=== PATIENT | female | born 1995 | race American Indian/Alaskan Native ===

== ENCOUNTER 2021-10-19 09:03 | Emergency (ER) | payer SELFPAY ==
--- NOTE | 2021-10-19 11:36 | Emergency Department Report ---
Minor Respiratory - HPI Chief Complaint: Syncope Stated Complaint: PT HAVING SYNCOPAL EPISODE Time Seen by Provider: 10/19/21 11:26 Other History: 25-year-old -Swiss female presents to the emergency room complaining of body aches hot and cold flashes nausea nasal congestion had a sore throat last night. States that she took to 800 mg ibuprofen and reports that did help. She does report having her Covid vaccination but not her [address]. She has not recently tested for Covid. Patient reports that she was moving around in her room in the dark and she bumped into a wall and injured her lip. ED Review of Systems ROS: Stated complaint: PT HAVING SYNCOPAL EPISODE Other details as noted in HPI Comment: All other systems reviewed and negative ED Past Medical Hx - Past Medical History Previous Medical History?: No - Surgical History Past Surgical History?: No Minor Respiratory Exam - Exam General: Vital signs noted. No distress. Alert and acting appropriately. HEENT: Yes Moist Mucous Membranes, No Pharyngeal Erythema, No Pharyngeal Exudates, No Rhinorrhea, No Conjuctival Injection, No Frontal Tenderness, No Maxillary Tenderness Ear: Neither EAC Pain, Neither EAC Discharge Neck: Yes Supple, No Adenopathy Lungs: Yes Good Air Exchange, No Wheezes, No Ronchi, No Stridor, No Cough, No Labored Respirations, No Retractions, No Use of Accessory Muscles, No Other Abnormal Lung Sounds Heart: Yes Regular, No Murmur Abdomen: Yes Normal Bowel Sounds, No Tenderness, No Peritoneal Signs Skin: No Rash, No Edema Neurologic: Alert and oriented, no deficits. Musculoskeletal: Unremarkable. ED Course Vital Signs 10/19/21 09:06 Temperature 100.4 F H Pulse Rate 108 H Respiratory 16 Rate Blood Pressure 116/35 [Left] O2 Sat by Pulse 100 Oximetry ED Medical Decision Making - Medical Decision Making 25-year-old -Swiss female presents to the emergency room complaining of body aches hot and cold flashes nausea nasal congestion had a sore throat last night. States that she took to 800 mg ibuprofen and reports that did help. She does report having her Covid vaccination but not her booster. She has not recently tested for Covid. Patient reports that she was moving around in her room in the dark and she bumped into a wall and injured her lip. Discussed with patient she can take Tylenol or ibuprofen for her body aches and fever discussed with patient to not take more than 800 mg of ibuprofen every 6-8 hours. Discussed with patient she needs to increase her fluid intake. She can take [id number] cold and flu medication. Be sure to drink as much fluids as possible. As the cold medication can cause dry throat mouth. Recommend to go get Covid tested. Critical care attestation.: If time is entered above; I have spent that time in minutes in the direct care of this critically ill patient, excluding procedure time. ED Disposition Clinical Impression: Suspected COVID-19 virus infection Disposition: 01 HOME / SELF CARE / HOMELESS Is pt being admited?: No Does the pt Need Aspirin: No Condition: Stable Instructions: COVID-19: How to Protect Yourself and Others - CDC, COVID-19 Frequently Asked Questions, Prevent the Spread of COVID-19 if You Are Sick - [facility] Additional Instructions: Your symptoms appear most consistent with a nonspecific viral syndrome. However, given this current pandemic, COVID-19 is in the differential of possibilities. I do recommend outpatient Covid 19 testing. In the meantime, isolate/quarantine yourself and stay away from anyone who is elderly, immunocompromised or chronically ill. You can use ibuprofen every 6-8 hours and Tylenol every 4-8 hours, using the dosing on the back of the bottle, as needed for any fever or body aches. Return to the emergency department with any worsening of your symptoms, development of chest pain or shortness of breath, or with any acute distress. Referrals: [facility] [Primary Care Provider] - 3-5 Days [facility] [Provider Group] - 3-5 Days Forms: Work/School Release Form(ED) Time of Disposition: 11:36
[2021-10-19 11:57] VITALS: BP 100/47
== END 2021-10-19 11:57 | disposition home or self-care (01) ==
LOC: ED 09:03
DX: M79.18 Myalgia, other site (principal); R09.81 Nasal congestion; J02.9 Acute pharyngitis, unspecified; Z20.822 Contact with and (suspected) exposure to COVID-19
CPT/HCPCS: 99282